=== PATIENT | male | born 1970 | race Two or more races ===

== ENCOUNTER 2023-05-29 19:49 | Inpatient (IN) | payer OTHER ==
[~2023-05-29] VITALS: Ht 165.1 cm; Wt 58.3 kg
[2023-05-29 20:57] LABS: Hematocrit 40.3 % (41.0-53.0); Hemoglobin 13.3 g/dL (13.5-17.5); Mean Corpuscular Hemoglobin 30.3 pg (28.0-32.0); Mean Corpuscular Volume 91.8 fL (80.0-100.0); Red Blood Cells 4.39 10^6/uL (4.5-5.90); Red Cell Distribution Width 13.5 % (11.8-14.3); White Blood Cell 11.1 10^3/uL (4.4-10.8)
[2023-05-29 21:01] LABS: Basophils % (manual) 0 (0.0-2.0); Blast Cells 0; Eosinophils % (manual) 0 (0-7); Myelocytes % 0; Promyelocytes % 0; Reactive Lymphocytes 0
[2023-05-29 21:11] LABS: Alanine Aminotransferase 24 U/L (7-40); Albumin 3.3 g/dL (3.2-4.8); Alkaline Phosphatase 92 U/L (46-116); Anion Gap 3 (5-15); Aspartate Aminotransferase 29 U/L (13-40); Bilirubin, Total 0.3 mg/dL (0.2-1.0); Blood Urea Nitrogen 24 mg/dL (9-23); Calcium 7.9 mg/dL (8.7-10.4); Carbon Dioxide 28 mmol/L (20-30); Chloride 103 mmol/L (98-107); Glucose 163 mg/dL (74-106); INR 1.1 (0.9-1.15); Magnesium 2.1 mg/dL (1.6-2.6); Partial Thromboplastin Time 28.8 SEC (24.5-34.5); Potassium 4.9 mmol/L (3.5-5.1); Prothrombin Time 11.5 sec (9.3-11.8); Sodium 134 mmol/L (136-145); Total Protein 5.6 g/dL (5.7-8.2)
[2023-05-29 21:26] LABS: Band Neutrophils % (manual) 25; Lymphocytes % (manual) 12 (10.0-50.0); Metamyelocytes % 1; Monocytes % (manual) 8 (0-12); Platelet Estimate Adequate; RBC Morphology Normal
[2023-05-29] MEDS: SODIUM CHLORIDE 0.9% 1,000 ML IV ONE (21:53)
[2023-05-29] MEDS: ACETAMINOPHEN 500 MG TAB PO ONE (22:45)
[2023-05-29] MEDS: cefTRIAXone 1GM/50ML D5W 50 ML IV ONE (23:37)
[2023-05-29] MEDS ORDERED: ONDANSETRON HCL 4 MG/2 ML VIAL IV PRN (23:45)
[2023-05-30] VITALS (9 sets, daily range): BP systolic 93–120; BP diastolic 51–73; PULSE 83–97; RESP 12–22; TEMP 98–99.1; O2SAT 92–99
[2023-05-30] MEDS: SODIUM CHLORIDE 0.9% 1,000 ML IV ONE (00:16)
[2023-05-30] MEDS: AZITHROMYCIN 500MG/ 250ML 250 ML IV ONE (00:16)
[2023-05-30] MEDS: methylPREDNISolone SOD SUCC 40 MG/ML VL IV ONE (00:19)
[2023-05-30] MEDS: SIMETHICONE 80 MG CHEWABLE TABLET PO ONE (01:08)
[2023-05-30 04:14] LABS: COVID19 ANTIGEN SOFIA FIA NEGATIVE (NEGATIVE)
[2023-05-30 04:15] LABS: Rapid Influenza A Negative (Negative); Rapid Influenza B Negative (Negative)
[2023-05-30 05:12] LABS: Basophils # (auto) 0 10 ^3/uL (0-0.2); Eosinophils # (auto) 0 10 ^3/uL (0-0.8); Hematocrit 38.9 % (41.0-53.0); Hemoglobin 12.6 g/dL (13.5-17.5); Lymphocytes # (auto) 0.6 10 ^3/uL (0.4-5.4); Lymphocytes % (auto) 6.9 % (10.0-50.0); Mean Corpuscular Hemoglobin 29.6 pg (28.0-32.0); Mean Corpuscular Hgb Conc. 32.4 g/dL (32.0-36.0); Mean Corpuscular Volume 91.4 fL (80.0-100.0); Monocytes # (auto) 0.8 10 ^3/uL (0-1.3); Monocytes % (auto) 9.4 % (0.0-12.0); Neutrophils # (auto) 7.4 10 ^3/uL (1.6-8.6); Neutrophils % (auto) 83.7 % (37.0-80.0); Red Blood Cells 4.26 10^6/uL (4.5-5.90); Red Cell Distribution Width 13.9 % (11.8-14.3); White Blood Cell 8.8 10^3/uL (4.4-10.8)
[2023-05-30 05:22] LABS: Anion Gap 4 (5-15); Carbon Dioxide 27 mmol/L (20-30); Chloride 102 mmol/L (98-107); Potassium 4.7 mmol/L (3.5-5.1); Sodium 133 mmol/L (136-145)
[2023-05-30] MEDS: IOHEXOL 350 MG/ML 100ML IJ ONE (05:22)
[2023-05-30 05:23] LABS: Calcium 8.1 mg/dL (8.5-10.1)
[2023-05-30 05:28] LABS: BUN/Creatinine Ratio 20.8 (10.0-20.0); Blood Urea Nitrogen 16 mg/dL (9-23); Glucose 197 mg/dL (74-106)
[2023-05-30] MEDS: ACETAMINOPHEN 325 MG TAB PO PRN (06:40)
[2023-05-30 06:47] LABS: Urine Bacteria NONE SEEN /hpf (None Seen); Urine Blood 1+ /uL (Negative); Urine Clarity Clear (Clear); Urine Protein, UAD 1+ (Negative); Urine Specific Gravity 1.023 (1.001-1.035); Urine Urobilinogen Normal (Negative); Urine WBC 1 /hpf (0 - 3)
[2023-05-30 06:53] LABS: Urine Color STRAW (Yellow)
[2023-05-30 07:14] LABS: Amphetamine Screen, Urine Neg (NEGATIVE)
[2023-05-30 07:15] LABS: Barbiturate Scree,Urine Neg (NEGATIVE); Benzodiazephine Screen, Urine Neg (NEGATIVE); Cannabinoid Screen, Urine Neg (NEGATIVE); Cocaine Screen, Urine Pos (NEGATIVE); Opiate Scree,Urine Pos (NEGATIVE); Phencyclidine Screen, Urine Neg (NEGATIVE)
[2023-05-30 10:13] LABS: Magnesium 2.4 mg/dL (1.6-2.6)
[2023-05-30 10:17] LABS: Triglycerides 98 mg/dL (< 150)
[2023-05-30 10:18] LABS: LDL Cholesterol 32 mg/dL (< 100)
[2023-05-30 10:19] LABS: Cholesterol 67 mg/dL (< 200); HDL Cholesterol 16 mg/dL (40-59)
[2023-05-30 10:27] LABS: CRP High Sensitivity > 20.00 mg/dL (<1.0)
[2023-05-30 10:44] LABS: % Iron Saturation 13.8 % (20-55)
[2023-05-30 11:00] LABS: Ferritin 471.4 ng/mL (22-322); Folate (Folic Acid) 14.34 ng/mL (>5.38)
[2023-05-30] MEDS: guaiFENesin-DM 100/10mg/5ml SYR PO PRN (11:01)
[2023-05-30] MEDS ORDERED: DEXTROSE (50%) 50ML SYRG IV PRN (12:15)
[2023-05-30] MEDS: AZITHROMYCIN 500MG/ 250ML 250 ML IV SCH (12:35)
[2023-05-30] MEDS: ERGOCALCIFEROL 50,000 UNIT(1.25MG) CAP PO SCH (13:28)
[2023-05-30 13:48] LABS: Free T3 2.23 pg/mL (2.3-4.2); Free T4 (Free Thyroxine) 1.19 ng/dL (0.89-1.76)
[2023-05-30 14:03] LABS: Wright Stain Ready for Review
[2023-05-30] MEDS: ACCU-CHEK COMFORT CURVE STRIP VI SCH (17:11)
[2023-05-30] MEDS: InsuLIN REG 1unit/0.01ml Soln (100units/ml) SC SCH (17:12)
[2023-05-30] MEDS: CEFEPIME 1GM/ 50ML 50 ML IV SCH (17:24)
[2023-05-30] MEDS ORDERED: cefTRIAXone 1GM/50ML D5W 50 ML IV SCH (21:00)
[2023-05-30] MEDS ORDERED: AZITHROMYCIN 500MG/ 250ML 250 ML IV SCH (22:00)
[2023-05-30] MEDS ORDERED: methylPREDNISolone SOD SUCC 40 MG/ML VL IV SCH (22:00)
[2023-05-31] VITALS (11 sets, daily range): BP systolic 92–115; BP diastolic 49–64; PULSE 67–101; RESP 16–20; TEMP 97.9–100; O2SAT 92–99
[2023-05-31 04:58] LABS: Basophils # (auto) 0 10 ^3/uL (0-0.2); Basophils % (auto) 0.1 % (0.0-2.0); Eosinophils # (auto) 0 10 ^3/uL (0-0.8); Lymphocytes # (auto) 1.4 10 ^3/uL (0.4-5.4); Monocytes # (auto) 1.3 10 ^3/uL (0-1.3); Nucleated Red Blood Cells % 0.1 %
[2023-05-31 05:00] LABS: Lymphocytes % (auto) 14.7 % (10.0-50.0); Mean Corpuscular Hemoglobin 30.1 pg (28.0-32.0); Mean Corpuscular Hgb Conc. 33.4 g/dL (32.0-36.0); Mean Corpuscular Volume 90.3 fL (80.0-100.0); Monocytes % (auto) 13.3 % (0.0-12.0); Neutrophils # (auto) 6.8 10 ^3/uL (1.6-8.6); Neutrophils % (auto) 71.9 % (37.0-80.0); Red Blood Cells 4.32 10^6/uL (4.5-5.90); Red Cell Distribution Width 13.7 % (11.8-14.3); White Blood Cell 9.5 10^3/uL (4.4-10.8)
[2023-05-31 05:24] LABS: Alanine Aminotransferase 23 U/L (7-40); Albumin 3.1 g/dL (3.2-4.8); Alkaline Phosphatase 81 U/L (46-116); Anion Gap 3 (5-15); Aspartate Aminotransferase 31 U/L (13-40); BUN/Creatinine Ratio 26.9 (10.0-20.0); Bilirubin, Total 0.3 mg/dL (0.2-1.0); Blood Urea Nitrogen 18 mg/dL (9-23); Calcium 8.3 mg/dL (8.7-10.4); Carbon Dioxide 27 mmol/L (20-30); Chloride 103 mmol/L (98-107); Glucose 169 mg/dL (74-106); Magnesium 2.2 mg/dL (1.6-2.6); Potassium 4.4 mmol/L (3.5-5.1); Sodium 133 mmol/L (136-145); Total Protein 5.7 g/dL (5.7-8.2)
[2023-05-31] MEDS: DOCUSATE SOD 100 MG CAP PO PRN (08:22)
[2023-05-31] MEDS: ALBUTEROL SULF 2.5 MG/0.5ML(0.5%) NEB SOLN NEB PRN (20:45)
[2023-05-31] MEDS: TEMAZEPAM 15 MG CAP PO PRN (22:17)
[2023-06-01] VITALS (10 sets, daily range): BP systolic 92–134; BP diastolic 51–61; PULSE 62–84; RESP 14–22; TEMP 98.1–98.4; O2SAT 94–100
[2023-06-01 06:16] LABS: Basophils # (auto) 0 10 ^3/uL (0-0.2); Basophils % (auto) 0.1 % (0.0-2.0); Eosinophils # (auto) 0 10 ^3/uL (0-0.8); Eosinophils % (auto) 0.1 % (0.0-7.0); Hematocrit 39.1 % (41.0-53.0); Hemoglobin 12.9 g/dL (13.5-17.5); Lymphocytes # (auto) 1.8 10 ^3/uL (0.4-5.4); Lymphocytes % (auto) 14.8 % (10.0-50.0); Mean Corpuscular Hemoglobin 29.9 pg (28.0-32.0); Mean Corpuscular Volume 90.6 fL (80.0-100.0); Monocytes # (auto) 1.4 10 ^3/uL (0-1.3); Monocytes % (auto) 11.6 % (0.0-12.0); Neutrophils % (auto) 73.4 % (37.0-80.0); Red Blood Cells 4.32 10^6/uL (4.5-5.90); Red Cell Distribution Width 13.9 % (11.8-14.3); White Blood Cell 12.2 10^3/uL (4.4-10.8)
[2023-06-01 06:33] LABS: Alanine Aminotransferase 30 U/L (7-40); Alkaline Phosphatase 80 U/L (46-116); Anion Gap 4 (5-15); Aspartate Aminotransferase 42 U/L (13-40); BUN/Creatinine Ratio 21.3 (10.0-20.0); Blood Urea Nitrogen 16 mg/dL (9-23); Carbon Dioxide 27 mmol/L (20-30); Chloride 100 mmol/L (98-107); Glucose 144 mg/dL (74-106); Potassium 4.1 mmol/L (3.5-5.1); Sodium 131 mmol/L (136-145)
[2023-06-01 06:34] LABS: Bilirubin, Total 0.3 mg/dL (0.2-1.0); Total Protein 5.7 g/dL (5.7-8.2)
[2023-06-01] MEDS: SODIUM CHLORIDE 0.9% 500 ML IV ONE (13:36)
[2023-06-02] VITALS (13 sets, daily range): BP systolic 92–105; BP diastolic 50–62; PULSE 64–97; RESP 16–20; TEMP 98.1–99.8; O2SAT 91–100
[2023-06-02 08:11] LABS: White Blood Cell 15.2 10^3/uL (4.4-10.8)
[2023-06-02 08:13] LABS: Hemoglobin 13.2 g/dL (13.5-17.5); Mean Corpuscular Hemoglobin 29.9 pg (28.0-32.0); Mean Corpuscular Hgb Conc. 32.9 g/dL (32.0-36.0); Mean Corpuscular Volume 90.8 fL (80.0-100.0); Red Blood Cells 4.41 10^6/uL (4.5-5.90); Red Cell Distribution Width 13.6 % (11.8-14.3)
[2023-06-02 08:21] LABS: Basophils % (manual) 0 (0.0-2.0); Blast Cells 0; Metamyelocytes % 0; Myelocytes % 0; Promyelocytes % 0; Reactive Lymphocytes 0
[2023-06-02 08:43] LABS: Calcium 8.2 mg/dL (8.5-10.1); Chloride 103 mmol/L (98-107); Potassium 3.8 mmol/L (3.5-5.1); Sodium 134 mmol/L (136-145)
[2023-06-02 08:44] LABS: Anion Gap 6 (5-15); Carbon Dioxide 25 mmol/L (20-30)
[2023-06-02 08:49] LABS: BUN/Creatinine Ratio 14.5 (10.0-20.0); Blood Urea Nitrogen 11 mg/dL (9-23); Glucose 144 mg/dL (74-106)
[2023-06-02 09:47] LABS: Band Neutrophils % (manual) 23; Eosinophils % (manual) 1 (0-7); Lymphocytes % (manual) 13 (10.0-50.0); Monocytes % (manual) 14 (0-12)
[2023-06-02 09:48] LABS: Platelet Estimate Increased
[2023-06-02] MEDS: HYDROcodone-ACET 5/325MG TAB PO PRN (10:17)
[2023-06-02] MEDS: SODIUM CHLORIDE 0.9% 500 ML IV ONE (14:00)
[2023-06-02] MEDS ORDERED: ACETYLCYSTEINE 10 %(100MG/ML) SOL 4ML NEB PRN (15:15)
[2023-06-02] MEDS: ACETYLCYSTEINE 10 %(100MG/ML) SOL 4ML NEB SCH (17:51)
[2023-06-03] VITALS (13 sets, daily range): BP systolic 89–110; BP diastolic 46–70; PULSE 72–89; RESP 8–20; TEMP 97.5–99.1; O2SAT 92–100
[2023-06-03 07:36] LABS: Basophils # (auto) 0 10 ^3/uL (0-0.2); Eosinophils # (auto) 0.1 10 ^3/uL (0-0.8); Lymphocytes # (auto) 1.8 10 ^3/uL (0.4-5.4); Monocytes # (auto) 1.3 10 ^3/uL (0-1.3); Neutrophils % (auto) 77.8 % (37.0-80.0)
[2023-06-03 07:38] LABS: Basophils % (auto) 0.1 % (0.0-2.0); Eosinophils % (auto) 0.5 % (0.0-7.0); Hematocrit 37.1 % (41.0-53.0); Hemoglobin 12.3 g/dL (13.5-17.5); Lymphocytes % (auto) 12.5 % (10.0-50.0); Mean Corpuscular Hemoglobin 30.4 pg (28.0-32.0); Mean Corpuscular Hgb Conc. 33.2 g/dL (32.0-36.0); Mean Corpuscular Volume 91.5 fL (80.0-100.0); Monocytes % (auto) 9.1 % (0.0-12.0); Neutrophils # (auto) 11.1 10 ^3/uL (1.6-8.6); Red Blood Cells 4.05 10^6/uL (4.5-5.90); Red Cell Distribution Width 13.9 % (11.8-14.3); White Blood Cell 14.2 10^3/uL (4.4-10.8)
[2023-06-03 07:53] LABS: Alanine Aminotransferase 33 U/L (7-40); Albumin 2.8 g/dL (3.2-4.8); Alkaline Phosphatase 83 U/L (46-116); Anion Gap 4 (5-15); Aspartate Aminotransferase 27 U/L (13-40); BUN/Creatinine Ratio 15.4 (10.0-20.0); Blood Urea Nitrogen 10 mg/dL (9-23); Calcium 7.9 mg/dL (8.7-10.4); Carbon Dioxide 25 mmol/L (20-30); Chloride 103 mmol/L (98-107); Glucose 151 mg/dL (74-106); Potassium 3.9 mmol/L (3.5-5.1); Sodium 132 mmol/L (136-145)
[2023-06-03 07:54] LABS: Bilirubin, Total 0.2 mg/dL (0.2-1.0); Total Protein 5.4 g/dL (5.7-8.2)
[2023-06-03 08:13] LABS: CRP High Sensitivity 7.42 mg/dL (<1.0)
[2023-06-03] MEDS: SODIUM CHLORIDE 0.9% 1,000 ML IV ONE (11:14)
[2023-06-03 22:06] LABS: QuantiFERON-TB Gold Plus Indeterminate (Negative)
[2023-06-04] VITALS (14 sets, daily range): BP systolic 83–101; BP diastolic 44–59; PULSE 69–87; RESP 17–20; TEMP 97.3–98.7; O2SAT 95–99
[2023-06-04 06:12] LABS: Basophils # (auto) 0 10 ^3/uL (0-0.2); Eosinophils # (auto) 0.1 10 ^3/uL (0-0.8); Monocytes # (auto) 0.9 10 ^3/uL (0-1.3)
[2023-06-04 06:15] LABS: Basophils % (auto) 0.3 % (0.0-2.0); Eosinophils % (auto) 0.8 % (0.0-7.0); Hematocrit 37.2 % (41.0-53.0); Hemoglobin 12.2 g/dL (13.5-17.5); Lymphocytes # (auto) 1.4 10 ^3/uL (0.4-5.4); Lymphocytes % (auto) 9.2 % (10.0-50.0); Mean Corpuscular Hgb Conc. 32.9 g/dL (32.0-36.0); Mean Corpuscular Volume 91.3 fL (80.0-100.0); Monocytes % (auto) 6.4 % (0.0-12.0); Neutrophils # (auto) 12.3 10 ^3/uL (1.6-8.6); Neutrophils % (auto) 83.3 % (37.0-80.0); Red Blood Cells 4.07 10^6/uL (4.5-5.90); Red Cell Distribution Width 13.9 % (11.8-14.3); White Blood Cell 14.8 10^3/uL (4.4-10.8)
[2023-06-04 06:25] LABS: Calcium 8.1 mg/dL (8.5-10.1); Chloride 103 mmol/L (98-107); Potassium 4.1 mmol/L (3.5-5.1); Sodium 133 mmol/L (136-145)
[2023-06-04 06:26] LABS: Anion Gap 3 (5-15); Carbon Dioxide 27 mmol/L (20-30)
[2023-06-04 06:31] LABS: BUN/Creatinine Ratio 17.5 (10.0-20.0); Blood Urea Nitrogen 11 mg/dL (9-23); Glucose 159 mg/dL (74-106)
[2023-06-05] VITALS (17 sets, daily range): BP systolic 87–104; BP diastolic 40–78; PULSE 73–98; RESP 14–20; TEMP 97.6–98.5; O2SAT 94–100
[2023-06-05 05:47] LABS: Basophils # (auto) 0.1 10 ^3/uL (0-0.2); Basophils % (auto) 0.5 % (0.0-2.0); Eosinophils # (auto) 0.2 10 ^3/uL (0-0.8); Hematocrit 39.2 % (41.0-53.0); Hemoglobin 12.5 g/dL (13.5-17.5); Lymphocytes # (auto) 1.6 10 ^3/uL (0.4-5.4); Lymphocytes % (auto) 8.6 % (10.0-50.0); Mean Corpuscular Hemoglobin 29.2 pg (28.0-32.0); Mean Corpuscular Volume 91.3 fL (80.0-100.0); Monocytes # (auto) 0.8 10 ^3/uL (0-1.3); Monocytes % (auto) 4.5 % (0.0-12.0); Neutrophils # (auto) 15.6 10 ^3/uL (1.6-8.6); Neutrophils % (auto) 85.4 % (37.0-80.0); Red Blood Cells 4.29 10^6/uL (4.5-5.90); White Blood Cell 18.2 10^3/uL (4.4-10.8)
[2023-06-05 05:58] LABS: Anion Gap 3 (5-15); Carbon Dioxide 28 mmol/L (20-30); Chloride 102 mmol/L (98-107); Potassium 4.4 mmol/L (3.5-5.1); Sodium 133 mmol/L (136-145)
[2023-06-05 05:59] LABS: Calcium 8.4 mg/dL (8.7-10.4)
[2023-06-05 06:04] LABS: BUN/Creatinine Ratio 18.8 (10.0-20.0); Blood Urea Nitrogen 12 mg/dL (9-23); Glucose 117 mg/dL (74-106)
[2023-06-05] MEDS ORDERED: FLUMAZENIL 0.1 MG/ML INJ 10ML MDV IV ONE (09:09)
[2023-06-05] MEDS ORDERED: NALOXONE HCL 0.4 MG/ML VIAL ONE (09:09)
[2023-06-05] MEDS ORDERED: SODIUM CHLORIDE LOCK 10 ML ONE (09:09)
[2023-06-05] MEDS ORDERED: LIDOCAINE 2%HCL (LOCAL ANESTH.) INJ 20ML MDV ONE (09:16)
[2023-06-05] MEDS ORDERED: EPINEPHrine HCL 1 MG/1 ML AMP ONE (09:16)
[2023-06-05] MEDS ORDERED: LIDOCAINE HCL 2% TOP JELLY 5ML TOP ONE (09:16)
[2023-06-05] MEDS ORDERED: GLYCOPYRROLATE 0.2 MG/ML 1ML VIAL ONE (09:16)
[2023-06-05] MEDS: MIDAZOLAM HCL 5 MG/ML-1ML VIAL ONE (10:06)
[2023-06-05] MEDS: fentaNYL CITRATE 100 MCG/2 ML VL ONE (10:06)
[2023-06-06] VITALS (9 sets, daily range): BP systolic 82–96; BP diastolic 45–57; PULSE 71–84; RESP 17–99; TEMP 97.4–98.1; O2SAT 19–99
[2023-06-06 05:49] LABS: Basophils # (auto) 0.1 10 ^3/uL (0-0.2); Basophils % (auto) 0.5 % (0.0-2.0); Eosinophils # (auto) 0.1 10 ^3/uL (0-0.8); Hematocrit 38.2 % (41.0-53.0); Hemoglobin 12.3 g/dL (13.5-17.5); Lymphocytes # (auto) 2.2 10 ^3/uL (0.4-5.4); Lymphocytes % (auto) 16.8 % (10.0-50.0); Mean Corpuscular Hemoglobin 29.7 pg (28.0-32.0); Mean Corpuscular Hgb Conc. 32.2 g/dL (32.0-36.0); Mean Corpuscular Volume 92.1 fL (80.0-100.0); Monocytes # (auto) 0.8 10 ^3/uL (0-1.3); Monocytes % (auto) 6.3 % (0.0-12.0); Neutrophils # (auto) 10.1 10 ^3/uL (1.6-8.6); Neutrophils % (auto) 75.4 % (37.0-80.0); Red Blood Cells 4.15 10^6/uL (4.5-5.90); White Blood Cell 13.3 10^3/uL (4.4-10.8)
[2023-06-06 06:04] LABS: Alanine Aminotransferase 48 U/L (7-40); Albumin 3.2 g/dL (3.2-4.8); Alkaline Phosphatase 89 U/L (46-116); Anion Gap 2 (5-15); Aspartate Aminotransferase 40 U/L (13-40); BUN/Creatinine Ratio 12.3 (10.0-20.0); Bilirubin, Total 0.2 mg/dL (0.2-1.0); Blood Urea Nitrogen 9 mg/dL (9-23); Calcium 8.4 mg/dL (8.5-10.1); Carbon Dioxide 31 mmol/L (20-30); Chloride 105 mmol/L (98-107); Glucose 95 mg/dL (74-106); Potassium 4.3 mmol/L (3.5-5.1); Sodium 138 mmol/L (136-145); Total Protein 6.3 g/dL (5.7-8.2)
[2023-06-06 06:13] LABS: CRP High Sensitivity 5.25 mg/dL (<1.0)
[2023-06-06 06:31] LABS: Magnesium 2.3 mg/dL (1.6-2.6)
[2023-06-06 07:29] LABS: Platelet Estimate Increased
[2023-06-06] MEDS ORDERED: GLIP5TAB21 PO (09:02)
[2023-06-06] MEDS ORDERED: CEFP200T15 PO (09:02)
[2023-06-06] MEDS ORDERED: METF-370 PO (09:02)
[2023-06-06] MEDS ORDERED: ERGO1CAP23 PO (09:02)
[2023-06-06] MEDS ORDERED: AZITTAB PO (09:02)
[2023-06-07 19:06] LABS: Coccidioides CF Antibody <1:2 (<1:2)
== END 2023-06-06 12:11 | disposition home or self-care (01) | DRG 871 ==
LOC: ER 19:49 → OVERFLOW 23:43 → WEST WING 05-30 05:24
PROVIDERS: ADMIT Internal Medicine; ATTEND Internal Medicine
PROC: 0B9C8ZX Drainage of Right Upper Lung Lobe, Via Natural or Artificial Opening Endoscopic, Diagnostic (ICD-10-PCS; principal; 2023-06-05 09:45)
DX: A41.9 Sepsis, unspecified organism (principal); J15.69 Pneumonia due to other Gram-negative bacteria; J96.01 Acute respiratory failure with hypoxia; A15.0 Tuberculosis of lung; F14.90 Cocaine use, unspecified, uncomplicated; Z20.822 Contact with and (suspected) exposure to COVID-19; E11.9 Type 2 diabetes mellitus without complications; E07.81 Sick-euthyroid syndrome; D63.8 Anemia in other chronic diseases classified elsewhere; Z87.891 Personal history of nicotine dependence; Z79.4 Long term (current) use of insulin; E55.9 Vitamin D deficiency, unspecified
CPT/HCPCS: 31645; 36415; 71045; 71275; 74176; 80048; 80053; 80061; 80307; 80320; 81001; 82306; 82607; 82728; 82746; 82962; 83036; 83540; 83550; 83605; 83615; 83735; 83880; 83930; 83935; 84300; 84439; 84443; 84481; 84484; 85007; 85025; 85027; 85045; 85379; 85610; 85730; 86038; 86141; 86635; 86703; 86803; 86850; 86900; 86901; 87040; 87070; 87077; 87081; 87205; 87278; 87426; 87449; 87804; 93005; 93970; 94640; 96361; 96374; G0378; J0171; J1815; J2250